=== PATIENT | female | born 1970 ===

== ENCOUNTER → 2022-04-17 08:00 | Outpatient (CLI) | payer OTHER ==
[~2022-04-17 08:00] MED LIST: AMBIEN10 MG PO; CARDIZEM CD240 MG PO; CLARINEX2.5 MG/5 M PO; CLONAZEPAM0.5 MG PO; COZAAR25 MG PO; CRESTOR10 MG PO; CYMBALTA30 MG PO; GABAPENTIN800 MG PO; GLUMETZA500 MG PO; NORFLEX PO
== END | disposition home or self-care (01) ==
LOC: LAB 08:00 → ADM 10:15 → EDSTATUS 04-22 10:15 → CIR.AMB 04-22 10:15
PROVIDERS: ATTEND Specialist
DX: N95.0 Postmenopausal bleeding (principal); Z20.828 Contact with and (suspected) exposure to other viral communicable diseases; Z01.812 Encounter for preprocedural laboratory examination

== ENCOUNTER 2022-09-23 06:31 | Day surgery (SDC) | payer OTHER | END 2022-09-23 15:20 | disposition home or self-care (01) | LOC: CIR.AMB 06:31 | PROVIDERS: ATTEND Specialist | DX: N95.0 Postmenopausal bleeding (principal); N72 Inflammatory disease of cervix uteri; Z88.6 Allergy status to analgesic agent; Z91.013 Allergy to seafood; Z88.8 Allergy status to other drugs, medicaments and biological substances; F17.210 Nicotine dependence, cigarettes, uncomplicated ==